=== PATIENT | male | born 1985 | race Caucasian/White ===

== ENCOUNTER 2017-09-14 13:40 | Emergency (ER) | payer OTHER ==
[~2017-09-14] VITALS: Ht 182.9 cm; Wt 122.5 kg
[~2017-09-14 13:40] MED LIST: BENTYL20 MG PO; NORCO 5-325 TA1 EAC1 PO; ONDANSETRON HCL4 M2 PO
[2017-09-14] MEDS ORDERED: ALEVE220 M1 PO (13:49)
[2017-09-14] MEDS ORDERED: ROBAXIN 750 MG750 M1 PO (14:15)
[2017-09-14] MEDS ORDERED: NAPROSYN500 MG PO (14:15)
[2017-09-14 14:30] VITALS: BP 136/76
== END 2017-09-14 14:31 | disposition home or self-care (01) ==
LOC: M.ERS 13:40
DX: S39.012A Strain of muscle, fascia and tendon of lower back, initial encounter (principal); X58.XXXA Exposure to other specified factors, initial encounter; Y93.89 Activity, other specified; Y92.89 Other specified places as the place of occurrence of the external cause; Y99.8 Other external cause status

== ENCOUNTER → 2017-12-09 | Outpatient (CLI) | payer OTHER ==
[~2017-12-09] MED LIST changes: +ALEVE220 M1 PO; +NAPROSYN500 MG PO; +ROBAXIN 750 MG750 M1 PO
--- NOTE | 2017-12-15 22:26 | SLEEP ---
[address] [address] SLEEP STUDY REPORT Name: MONTRELL SNELL Room: [facility]#: [id number] Admission: 12/09/17 Attend Phys: Samantha. TERRY Estrada Discharge: Date of : 89 Report #: [id number] THIS REPORT FOR: //name// CC: Samantha. Diaz This study has been reviewed in its entirety by a board certified sleep specialist DATE OF SERVICE: 12/12/2017 HOME SLEEP STUDY The patient is 32 years old who weighs 260 pounds. The patient's [place] score was 12. The patient underwent home sleep study performed by [facility]. Total recording time was 329 minutes. During the night study, the patient had 1 central apnea, 36 obstructive apneas, no mixed apneas and 50 hypopneas. The patient's apnea-hypopnea index was 16 per hour with a supine index of 16 per hour as well. Nocturnal oximetry study revealed an average oxygen saturation of 94% with a lowest of 80%. 12 minutes were spent in oxygen saturation of less than 90%. EKG monitoring revealed mean heart rate of 54 beats per minute with a maximum of 91 beats per minute. IMPRESSION: 1. Moderate sleep apnea-hypopnea syndrome at an AHI of 16 per hour. 2. Nocturnal hypoxia secondary to obstructive sleep apnea. RECOMMENDATIONS: 1. The patient would benefit from in-lab CPAP titration study. Alternate treatment option would include home auto-titration study. 2. Follow up in 4-6 weeks after PAP therapy has been initiated to assess compliance and to document clinical improvement. 3. Weight loss is strongly advised. 4. Avoid [employer] depressants. 5. Cautioned regarding driving until symptoms of sleep apnea resolve with the above recommendations. <ELECTRONICALLY SIGNED> By: Jonel Adams MD 12/15/17 [id number] Jamar Adams MD /nt
== END ==
LOC: M.SLEEPLAB 13:28
DX: G47.30 Sleep apnea, unspecified (principal)

== ENCOUNTER 2018-07-26 11:03 | Emergency (ER) | payer OTHER ==
[~2018-07-26] VITALS: Ht 182.9 cm; Wt 113.4 kg
[2018-07-26] MEDS ORDERED: SYNTHROID25 MC1 PO (11:19)
[2018-07-26] MEDS ORDERED: LISINOPRIL10 MG PO (11:19)
[2018-07-26] MEDS ORDERED: CELEXA20 MG PO (11:20)
[2018-07-26] MEDS ORDERED: KEFLEX500 M1 PO (11:30)
[2018-07-26] MEDS ORDERED: BACTRIM DS TAB1 EACH PO (11:30)
[2018-07-26] MEDS ORDERED: TRAMADOL HCL50 MG PO (12:12)
[2018-07-26 12:23] VITALS: BP 140/75
== END 2018-07-26 12:24 | disposition home or self-care (01) ==
LOC: M.ERS 11:03
DX: L02.416 Cutaneous abscess of left lower limb (principal); L03.116 Cellulitis of left lower limb; F41.9 Anxiety disorder, unspecified; I10 Essential (primary) hypertension; E03.9 Hypothyroidism, unspecified

== ENCOUNTER 2018-08-19 19:53 | Emergency (ER) | payer OTHER ==
[~2018-08-19] VITALS: Ht 182.9 cm; Wt 115.7 kg
[~2018-08-19 19:53] MED LIST changes: +BACTRIM DS TAB1 EACH PO; +CELEXA20 MG PO; +KEFLEX500 M1 PO; +LISINOPRIL10 MG PO; +SYNTHROID25 MC1 PO; +TRAMADOL HCL50 MG PO
[2018-08-19] MEDS ORDERED: IBUPROFEN 800800 M1 PO (20:35)
[2018-08-19] MEDS ORDERED: NORFLEX100 MG PO (20:35)
[2018-08-19 21:51] VITALS: BP 162/91
== END 2018-08-19 21:52 | disposition home or self-care (01) ==
LOC: M.ERS 19:53
DX: S16.1XXA Strain of muscle, fascia and tendon at neck level, initial encounter (principal); I10 Essential (primary) hypertension; F41.9 Anxiety disorder, unspecified; E03.9 Hypothyroidism, unspecified; V89.2XXA Person injured in unspecified motor-vehicle accident, traffic, initial encounter; Y93.89 Activity, other specified; Y92.89 Other specified places as the place of occurrence of the external cause; Y99.8 Other external cause status

== ENCOUNTER 2018-10-19 16:04 | Emergency (ER) | payer OTHER ==
[~2018-10-19] VITALS: Ht 182.9 cm; Wt 115.7 kg
[~2018-10-19 16:04] MED LIST changes: +IBUPROFEN 800800 M1 PO; +NORFLEX100 MG PO
[2018-10-19] MEDS ORDERED: PREDNISONE 10 M10 MG PO (16:34)
[2018-10-19 16:46] VITALS: BP 131/78
== END 2018-10-19 16:47 | disposition home or self-care (01) ==
LOC: M.ERS 16:04
DX: L23.9 Allergic contact dermatitis, unspecified cause (principal); F41.9 Anxiety disorder, unspecified; I10 Essential (primary) hypertension; E03.9 Hypothyroidism, unspecified; Z79.899 Other long term (current) drug therapy

== ENCOUNTER 2019-03-02 20:07 | Emergency (ER) | payer OTHER ==
[~2019-03-02] VITALS: Ht 182.9 cm; Wt 117.9 kg
[~2019-03-02 20:07] MED LIST changes: +PREDNISONE 10 M10 MG PO
[2019-03-02 21:27] VITALS: BP 131/63
== END 2019-03-02 21:28 | disposition home or self-care (01) ==
LOC: M.ERS 20:07
DX: S60.012A Contusion of left thumb without damage to nail, initial encounter (principal); E03.9 Hypothyroidism, unspecified; F41.9 Anxiety disorder, unspecified; I10 Essential (primary) hypertension; W22.8XXA Striking against or struck by other objects, initial encounter; Y93.89 Activity, other specified; Y92.89 Other specified places as the place of occurrence of the external cause; Y99.8 Other external cause status

== ENCOUNTER 2019-10-07 14:05 | Emergency (ER) | payer BC ==
[~2019-10-07] VITALS: Ht 182.9 cm; Wt 115.7 kg
[2019-10-07] MEDS ORDERED: IBUPROFEN 800800 M1 PO (14:45)
[2019-10-07 14:57] VITALS: BP 144/89
== END 2019-10-07 14:57 | disposition home or self-care (01) ==
LOC: M.ERS 14:05
DX: S93.492A Sprain of other ligament of left ankle, initial encounter (principal); I10 Essential (primary) hypertension; E03.9 Hypothyroidism, unspecified; F41.9 Anxiety disorder, unspecified; X50.1XXA Overexertion from prolonged static or awkward postures, initial encounter; Y93.89 Activity, other specified; Y92.89 Other specified places as the place of occurrence of the external cause; Y99.8 Other external cause status